=== PATIENT | female | born 1980 | race African-American/Black ===

== ENCOUNTER 2020-11-14 02:32 | Emergency (ER) | payer SELFPAY ==
[~2020-11-14] VITALS: Ht 162.6 cm; Wt 77.1 kg
[2020-11-14] MEDS ORDERED: PROMETHAZI6.25 MG/5 PO (02:44)
[2020-11-14] MEDS ORDERED: AZITHROMYCIN250 MG PO (02:58)
== END 2020-11-14 03:05 | disposition home or self-care (01) ==
LOC: ER 02:41
DX: J06.9 Acute upper respiratory infection, unspecified (principal); H66.92 Otitis media, unspecified, left ear
CPT/HCPCS: 99282

== ENCOUNTER 2020-12-03 08:54 | Emergency (ER) | payer SELFPAY ==
[~2020-12-03] VITALS: Ht 162.6 cm; Wt 77.1 kg
[~2020-12-03 08:54] MED LIST: AZITHROMYCIN250 MG PO; PROMETHAZI6.25 MG/5 PO
== END 2020-12-03 09:58 | disposition home or self-care (01) ==
LOC: ER 09:10
DX: F41.9 Anxiety disorder, unspecified (principal); I10 Essential (primary) hypertension
CPT/HCPCS: 99284

== ENCOUNTER 2021-03-31 09:25 | Emergency (ER) | payer SELFPAY ==
[~2021-03-31] VITALS: Ht 162.6 cm; Wt 77.1 kg
== END 2021-03-31 10:12 | disposition home or self-care (01) ==
LOC: ER 09:47
DX: R05.9 Cough, unspecified (principal); R51.9 Headache, unspecified; I10 Essential (primary) hypertension
CPT/HCPCS: 99282